=== PATIENT | female | born 1945 | race Caucasian/White ===

== ENCOUNTER 2017-04-20 11:50 | Emergency (ER) | payer OTHER ==
[~2017-04-20] VITALS: Ht 157.5 cm; Wt 103.0 kg
[2017-04-20 11:56] VITALS: BP 170/84; PULSE 94; RESP 16; TEMP 98.3; O2SAT 94
[2017-04-20] MEDS ORDERED: ASPI81TA23 PO (12:30)
[2017-04-20] MEDS ORDERED: METF500T PO (12:30)
[2017-04-20] MEDS ORDERED: ROPI0.5T PO (12:30)
[2017-04-20] MEDS ORDERED: CHOL5000 PO (12:30)
[2017-04-20] MEDS ORDERED: LOSA100T PO (12:30)
--- NOTE | 2017-04-20 12:44 | PD ---
HPI Chief Complaint: Fall Time Seen by Provider: 12:14 Travel History International Travel<30 days: No Contact w/Intl Traveler<30days: No Traveled to known affect area: No History of Present Illness HPI 72-year-old female here with bilateral knee pain after falling 3 times in the last 3 days. She reports each fall was caused by stepping onto uneven pavement or gabriel which caused her right knee to give out. She reports the first fall she struck the back of her head on the ground. There was no loss of consciousness. She denies headaches, visual changes, neck pain, nausea or vomiting, chest pain, abdominal pain, paresthesia or weakness in the extremities. The second and third fall caused her to fall onto flexed knees. She now has pain in the anterior portion of the knees which is worse with weightbearing and flexion. She denies any other injury. PFSH Past Medical History Hx Anticoagulant Therapy: No Cardiovascular Problems: Yes (HTN) Diabetes: Yes Patient Takes Glucophage: Yes (04-19-17 1700) Diminished Hearing: No Hypertension: Yes Musculoskeletal: Yes (restless legs) Immunizations Current: Yes Tetanus Vaccination: > 5 Years Influenza Vaccination: No ?: Not Menopausal: Yes Past Surgical History Appendectomy: Yes Cholecystectomy: Yes Tonsillectomy: Yes Other Surgery: Yes (barriatric) Social History Alcohol Use: No Tobacco Use: No Substance Use: No Allergies-Medications (Allergen,Severity, Reaction): Coded Allergies: iodine (Verified Allergy, Severe, 04/20/17) shellfish derived (Verified Allergy, Severe, 04/20/17) Reported Meds & Prescriptions Reported Meds & Active Scripts Active Reported Vitamin D3 (Cholecalciferol) 5,000 Unit Cap 5,000 Units PO DAILY Ropinirole 0.5 Mg Tab 0.5 Mg PO TID Aspirin EC (Aspirin) 81 Mg Tabdr 81 Mg PO DAILY Metformin (Metformin HCl) 500 Mg Tab 500 Mg PO DAILY With a meal Losartan (Losartan Potassium) 100 Mg Tab 100 Mg PO DAILY Review of Systems Except as stated in HPI: all other systems reviewed are Neg General / Constitutional: No: Fever Eyes: No: Visual changes HENT: No: Headaches Cardiovascular: No: Chest Pain or Discomfort Respiratory: No: Shortness of Breath Gastrointestinal: No: Abdominal Pain Genitourinary: No: Dysuria Neurologic: No: Weakness Physical Exam Narrative GENERAL: Alert, well-appearing female in no acute distress. Patient ambulates with steady gait SKIN: Warm and dry. No areas of ecchymosis or abrasions HEAD: Atraumatic. Normocephalic. EYES: Pupils equal and round. No scleral icterus. No injection or drainage. EOMs intact. ENT: No nasal bleeding or discharge. Mucous membranes pink and moist. NECK: Trachea midline. No JVD. Cervical midline tenderness CARDIOVASCULAR: Regular rate and rhythm. No chest wall or rib tenderness. RESPIRATORY: No accessory muscle use. Clear to auscultation. Breath sounds equal bilaterally. GASTROINTESTINAL: Abdomen soft, non-tender, nondistended. Hepatic and splenic margins not palpable. MUSCULOSKELETAL: Extremities without clubbing, cyanosis, or edema. No obvious deformities. Mild TTP to bilateral anterior knees. No joint effusion. The joints are stable. 2+ popliteal, dorsal pedis pulses. Brisk cap refill. Sensation NEUROLOGICAL: Awake and alert. No obvious cranial nerve deficits. Motor grossly within normal limits. Five out of 5 muscle strength in the arms and legs. Normal speech. PSYCHIATRIC: Appropriate mood and affect; insight and judgment normal. Data Data Last Documented VS Vital Signs Date Time Temp Pulse Resp B/P (MAP) Pulse Ox O2 Delivery O2 Flow Rate FiO2 04/20/17 11:56 98.3 94 16 170/84 (112) 94 Orders Orders Knee, Complete (4vws) (04/20/17 ) Knee, Complete (4vws) (04/20/17 ) Splint Or Brace Apply/Monitor (04/20/17 13:01) [facility] Medical Decision Making Medical Screen Exam Complete: Yes Emergency Medical Condition: Yes Differential Diagnosis Sprain versus strain versus fracture versus contusion versus concussion versus ICH Narrative Course 72-year-old female here with bilateral anterior knee pain after falling 3 different times over the last 3 days. She reports the right knee continues to give out when she steps on uneven pavement causing her to fall. She denies dizziness, chest pain, palpitations prior to the fall. She does report hitting her head 3 days ago but denies loss of consciousness, headache, visual changes, neck pain, nausea or vomiting since the event. She is not anticoagulated. She declined CT imaging of the brain. She is well-appearing. Her head is atraumatic. No cervical midline tenderness. Mild anterior patellar tenderness. The joints are stable and the extremity is neurovascular intact. X-ray's are negative for fracture. Patient be treated for knee sprain/ contusion. Quan wrap supplied to bilateral knees. Patient was instructed to ice and elevate the extremities. Follow-up with her primary doctor. Return precautions were discussed. Patient verbalizes understanding and agrees Diagnosis Primary Impression: CONTUSION OF UNSPECIFIED KNEE, INITIAL ENCOUNTER Referrals: Primary Care Physician Additional Instructions: Is the Quan wrap as directed. Ice and elevate the extremity is. Take [id number] Motrin or Tylenol as needed for pain and discomfort. Follow-up the primary doctor for recheck. Disposition: 01 DISCHARGE HOME Condition: Stable Nissa Smith Apr 20, 2017 12:44
--- NOTE | 2017-04-20 12:55 | RADRPT ---
EXAM DATE/TIME: 04/20/2017 12:26 [facility] COMPARISON: No previous studies available for comparison. INDICATIONS : Right knee pain; fell 3 times 2 days ago. MEDICAL HISTORY : None. SURGICAL HISTORY : None. ENCOUNTER: Initial ACUITY: 2 days PAIN SCORE: 6/10 LOCATION: Right knee. FINDINGS: Four view examination of the right knee demonstrates no evidence of fracture or dislocation. Increase d bone density is noted. The articular surfaces are intact. The suprapatellar soft tissues have a n ormal configuration. CONCLUSION: 1. Decreased bone density 2. No evidence of acute fracture, joint effusion or significant soft tissue swelling. Cirilo Clarke MD on April 20, 2017 at 12:54 Board Certified Radiologist. This report was verified electronically.
--- NOTE | 2017-04-20 12:55 | RADRPT ---
EXAM DATE/TIME: 04/20/2017 12:26 [facility] COMPARISON: No previous studies available for comparison. INDICATIONS : Left knee pain; fell 3 times 2 days ago. MEDICAL HISTORY : None. SURGICAL HISTORY : None. ENCOUNTER: Initial ACUITY: 2 days PAIN SCORE: 7/10 LOCATION: Left knee. FINDINGS: Four view examination of the left knee demonstrates no evidence of fracture or dislocation. Significa nt decreased bone density is noted. The articular surfaces are intact. Minimal joint effusion is pre sent. CONCLUSION: 1. No evidence of displaced fracture. 2. Minimal joint effusion. 3. Significant decreased bone mineralization. Cirilo Clarke MD on April 20, 2017 at 12:52 Board Certified Radiologist. This report was verified electronically.
--- NOTE | 2017-04-20 13:49 | RADRPT ---
EXAM DATE/TIME: 04/20/2017 13:34 [facility] COMPARISON: No previous studies available for comparison. INDICATIONS : Trauma. Fell and hit back of head on Monday. States she fell 3 times in 3 hours. RADIATION DOSE: 62.60 CTDIvol (mGy) MEDICAL HISTORY : Hypertension. Diabetes mellitus type 2. SURGICAL HISTORY : Appendectomy. Cholecystectomy. ENCOUNTER: Initial ACUITY: 2 days PAIN SCALE: 4/10 LOCATION: cranial TECHNIQUE: Multiple contiguous axial images were obtained of the head. Using automated exposure control and adj ustment of the mA and/or kV according to patient size, radiation dose was kept as low as reasonably a chievable to obtain optimal diagnostic quality images. DICOM format image data is available electro nically for review and comparison. FINDINGS: CEREBRUM: The ventricles are normal for age. No evidence of midline shift, mass lesion, hemorrhage or acute in farction. No extra-axial fluid collections are seen. POSTERIOR FOSSA: The cerebellum and brainstem are intact. The 4th ventricle is midline. The cerebellopontine angle i s unremarkable. EXTRACRANIAL: The visualized portion of the orbits is intact. SKULL: The calvaria is intact. No evidence of skull fracture. CONCLUSION: Negative trauma study. Sagar August MD on April 20, 2017 at 13:47 Board Certified Radiologist. This report was verified electronically.
[2017-04-20 13:55] VITALS: BP 182/85; PULSE 90; RESP 16; O2SAT 95
== END 2017-04-20 14:23 | disposition home or self-care (01) ==
LOC: PHEFT 11:50
DX: S80.00XA Contusion of unspecified knee, initial encounter (principal); S09.90XA Unspecified injury of head, initial encounter; W19.XXXA Unspecified fall, initial encounter
CPT/HCPCS: 70450; 73564